=== PATIENT | female | born 1985 ===

== ENCOUNTER 2017-05-31 11:55 | Emergency (ER) | payer OTHER ==
[2017-05-31 13:10] LABS: BASO # 0.1 K/uL (0.0-0.2); BASO % 0.7 % (0.0-2.0); EOS # 0.1 K/uL (0.0-0.7); EOS % 1.2 % (0.0-4.0); LYMPH # 2.6 K/uL (1.0-4.3); LYMPH % 33.7 % (20.0-40.0); MEAN CORPUSCULAR HEMOGLOBIN 20.4 pg (27.0-31.0); MEAN CORPUSCULAR HGB CONC 30.8 g/dL (33.0-37.0); MEAN PLATELET VOLUME 9.6 fL (7.2-11.7); MONO # 0.8 K/uL (0.0-0.8); MONO % 10.2 % (0.0-10.0); NEUT # 4.1 K/uL (1.8-7.0); NEUT % 54.2 % (50.0-75.0); NRBC % 0.1 % (0.0-2.0); RBC 4.2 Mil/uL (3.80-5.20); RED CELL DISTRIBUTION WIDTH 18.6 % (11.5-14.5); WHITE BLOOD COUNT 7.6 K/uL (4.8-10.8)
[2017-05-31 13:12] LABS: HEMOGLOBIN 8.6 g/dL (11.0-16.0)
[2017-05-31 13:13] LABS: MEAN CELL VOLUME 66.5 fL (81.0-99.0)
[2017-05-31 13:16] LABS: SQUAMOUS EPITHIAL 1 /hpf (0-5); URINE BILIRUBIN NEGATIVE (NEGATIVE); URINE BLOOD 3+ (NEGATIVE); URINE CLARITY Hazy (Clear); URINE COLOR Red (YELLOW); URINE GLUCOSE (UA) NORMAL (Normal); URINE LEUKOCYTE ESTERASE NEG Leu/uL (Negative); URINE PROTEIN 1+ mg/dL (NEGATIVE); URINE UROBILINOGEN NORMAL mg/dL (0.2-1.0)
[2017-05-31 13:17] LABS: HCG,QUALITATIVE URINE POSITIVE (NEGATIVE)
--- NOTE | 2017-05-31 14:02 | C.PDOC ---
History Of Present Illness 32 yo female , LNMP 04/21/17, EGA 5w5d , no hx of ectopic , come in for evaluation of sudden onset of vaginal bleeding for past 2 days associated with mild diffuse lower abdominal pain. Pt denies current care. Denies fever, chills, recent illness, sore throat, CP, SOB, dyspnea, diaphoresis, palpitation, V/D, back pain, UTI sx, denies vaginal irritation or discharges. Ambulate to ED for evaluation, not in nay apparent distress. Time Seen by Provider: 05/31/17 12:06 Chief Complaint (Nursing): Female Genitourinary History Per: Patient Onset/Duration Of Symptoms: Gradual Past Medical History Reviewed: Historical Data, Nursing Documentation, Vital Signs Vital Signs: Last Vital Signs Temp 98.5 F 05/31/17 15:22 Pulse 53 L 05/31/17 15:22 Resp 18 05/31/17 15:22 BP 112/62 05/31/17 15:22 Pulse Ox 100 05/31/17 15:22 - Medical History PMH: No Chronic Diseases Surgical History: No Surg Hx Family History: States: Unknown Family Hx - Social History Hx Alcohol Use: No Hx Substance Use: No - Immunization History Hx Influenza Vaccination: No Review Of Systems Except As Marked, All Systems Reviewed And Found Negative. Constitutional: Negative for: Fever, Chills ENT: Negative for: Nose Discharge, Throat Pain, Throat Swelling Cardiovascular: Negative for: Chest Pain Respiratory: Negative for: Cough, Shortness of Breath, Wheezing Gastrointestinal: Positive for: Abdominal Pain. Negative for: Nausea, Vomiting , Diarrhea Genitourinary: Positive for: Vaginal Bleeding. Negative for: Dysuria, Hematuria , Vaginal Discharge Musculoskeletal: Negative for: Neck Pain, Back Pain Skin: Negative for: Rash Neurological: Negative for: Weakness, Numbness, Altered Mental Status Physical Exam - Physical Exam Appears: Well, Non-toxic, No Acute Distress Skin: Normal Color, Warm, Dry, No Rash Head: Normacephalic Eye(s): bilateral: PERRL Nose: No Flaring, No Discharge Oral Mucosa: Moist, No Drooling Throat: No Erythema, No Drooling Neck: Trachea Midline, Supple Cardiovascular: Rhythm Regular Respiratory: No Decreased Breath Sounds, No Accessory Muscle Use, No Stridor, No Wheezing Gastrointestinal/Abdominal: Soft, Tenderness (mild supr), No Distention, No Guarding, No Rebound Back: No CVA Tenderness Extremity: Normal ROM, No Pedal Edema, No Deformity Neurological/Psych: Oriented x3, Normal Speech ED Course And Treatment - Laboratory Results Result Diagrams: 05/31/17 13:03 Urine POC: Positive O2 Sat by Pulse Oximetry: 98 Pulse Ox Interpretation: Normal Progress Note: Blood work review, H/H 8.6/27.9 r/o iron def. anemia. beta quant 314. Blood type A positive. US results review , no IUP visualized r/o spontaneous . On re-evaluation, pt is afebrile, hemodynamicaly stable. Non-toxic. Tolerate Po well in ED. Neck: Supple, (-) meningeal sign. ENT: no acute findings. Lungs: CTA B/L, BS equal B/L. Abd: benign, (-) guarding, (- ) rebound. back: (-) CVA tenderness. results review and discussed with pt. Pt has clinical findings c/w spontaneous misscariege. Pt advised. ref. to ED in 2 days to repeat blood work, US? Pt understand and agrees with plan. Return to ED if any worsening or new changes. Disposition Counseled Patient/Family Regarding: Studies Performed, Diagnosis, Need For Followup, Rx Given - [facility]position [facility] Disposition: HOME/ ROUTINE Disposition Time: 14:50 Condition: STABLE Additional Instructions: Follow up with SHEET CUTTING OPERATOR or return to ED ( if unable to reach SHEET CUTTING OPERATOR) in 2 days for re- evaluation and repeat beta quant. return to Ed if any worsening or new changes. Instructions: Anemia Caused by Low Iron, Adult (DC), Miscarriage (DC) Forms: [employer] (Azeri) Print Language: FRENCH - Clinical Impression Clinical Impression: Spontaneous , Anemia
--- NOTE | 2017-05-31 15:21 | US ---
HISTORY: vaginal bleeding COMPARISON: None available. TECHNIQUE: Transabdominal and transvaginal FINDINGS: UTERUS: Measures 9.4 x 4.8 x 6.3 cm. Normal in size and appearance. No fibroid or other mass lesion seen. ENDOMETRIUM: Measures 6 mm in diameter. No intrauterine gestational sac identified CERVIX: No cervical abnormality identified. RIGHT OVARY: Measures 1.8 x 1.4 x 1.9 cm. No solid mass. Normal flow. LEFT OVARY: Measures 3.8 x 2.1 x 2.9 cm. No solid mass. Normal flow. FREE FLUID: Small amount of free fluid in cul-de-sac OTHER FINDINGS: None. IMPRESSION: No intrauterine gestation. Small amount of free fluid in cul-de-sac common nonspecific. Otherwise unremarkable examination.
[2017-05-31 15:23] VITALS: BP 112/62; PULSE 53; RESP 18; TEMP 98.5
[2017-06-02 20:10] VITALS: O2SAT 98
== END 2017-05-31 15:23 | disposition home or self-care (01) ==
LOC: C.ER 11:55
DX: O03.9 Complete or unspecified spontaneous abortion without complication (principal); D64.9 Anemia, unspecified

== ENCOUNTER 2017-06-02 12:55 | Emergency (ER) | payer OTHER ==
[2017-06-02 13:20] VITALS: BP 118/76; PULSE 63; RESP 18; TEMP 98.5; O2SAT 100
--- NOTE | 2017-06-02 14:53 | C.PDOC ---
History Of Present Illness 32yo female, presents to ED today for a repeat beta-HCG. She was seen in this facility 2 days ago with vaginal bleeding in setting of 6 weeks of ; patient had an US performed which showed nothing in the uterus. Patient was diagnosed with a complete . She denies any vaginal bleeding today. Time Seen by Provider: 06/02/17 13:45 Chief Complaint (Nursing): Medical Clearance History Per: Patient History/Exam Limitations: no limitations Onset/Duration Of Symptoms: Days Past Medical History Reviewed: Historical Data, Nursing Documentation, Vital Signs Vital Signs: Last Vital Signs Temp 98.5 F 06/02/17 13:17 Pulse 63 06/02/17 13:17 Resp 18 06/02/17 13:17 BP 118/76 06/02/17 13:17 Pulse Ox 100 06/02/17 14:53 - Medical History PMH: No Chronic Diseases Surgical History: No Surg Hx Family History: States: Unknown Family Hx - Social History Hx Alcohol Use: No Hx Substance Use: No - Immunization History Hx Influenza Vaccination: No Review Of Systems Except As Marked, All Systems Reviewed And Found Negative. Genitourinary: Negative for: Vaginal Bleeding Physical Exam - Physical Exam Appears: Non-toxic, No Acute Distress Skin: Normal Color Head: Normacephalic Eye(s): bilateral: Normal Inspection Neck: Normal, Supple Chest: Symmetrical Cardiovascular: Rhythm Regular Respiratory: Normal Breath Sounds Gastrointestinal/Abdominal: Normal Exam, Soft, No Tenderness Neurological/Psych: Oriented x3 ED Course And Treatment O2 Sat by Pulse Oximetry: 100 (RA) Pulse Ox Interpretation: Normal Medical Decision Making Medical Decision Making: Impression: Follow up regarding complete Plan: -- Beta HCG levels Patient with beta-HCG level trending down. Stable for discharge home, advised to follow up with OBGYN in 2-3 days. Disposition Counseled Patient/Family Regarding: Studies Performed, Diagnosis - Disposition Disposition: HOME/ ROUTINE Disposition Time: 14:52 Condition: STABLE Forms: Gen Discharge Inst Chilean, [email or web address] (Chilean) - POA Present On Arrival: None - Clinical Impression Clinical Impression: Complete miscarriage - Scribe Statement The provider has reviewed the documentation as recorded by the Scribe (Ana Holley) Provider Attestation: All medical record entries made by the Scribe were at my direction and personally dictated by me. I have reviewed the chart and agree that the record accurately reflects my personal performance of the history, physical exam, medical decision making, and the department course for this patient. I have also personally directed, reviewed, and agree with the discharge instructions and disposition.
== END 2017-06-02 15:00 | disposition home or self-care (01) ==
LOC: C.ER 12:55
DX: O03.9 Complete or unspecified spontaneous abortion without complication (principal)